=== PATIENT | female | born 1950 | race African-American/Black ===

== ENCOUNTER 2017-10-07 12:07 | Emergency (ER) | payer MEDICARE ==
[2017-10-07 12:13] VITALS: BP 125/83; PULSE 51; TEMP 97.5; BMI 26.6
[2017-10-07] MEDS ORDERED: KETOROLAC TROMETHAMINE 30 MG/1 ML VIAL IM ONE (12:35)
[2017-10-07] MEDS ORDERED: KETOROLAC TROMETHAMINE 30 MG/1 ML VIAL ONE (12:42)
--- NOTE | 2017-10-07 12:43 | PDOC ---
History of Present Illness - General Chief Complaint: Pain Stated Complaint: LEG PAIN Time Seen by Provider: 10/07/17 12:14 History Source: Patient - History of Present Illness Occurred: reports: other Lower Extremity Pain Location: right: leg Past History - Past Medical History Allergies/Adverse Reactions: Allergies Allergy/AdvReac Type Severity Reaction Status Date / Time No Known Allergies Allergy Verified 10/07/17 12:13 Home Medications: Ambulatory Orders NK [No Known Home Medication] 10/07/17 COPD: No HTN: Yes - Suicide/Smoking/Psychosocial Hx Smoking History: Current every day smoker Number of Cigarettes Smoked Daily: 20 Information on smoking cessation initiated: No Review of Systems - Review of Systems Constitutional: No: Chills, Fever Respiratory: No: Shortness of Breath Cardiac (ROS): No: Chest Pain, Palpitations Musculoskeletal: No: Joint Pain, Joint Swelling, Muscle Weakness Integumentary: No: Erythema, Rash *Physical Exam - Vital Signs Last Vital Signs Temp Pulse Resp BP Pulse Ox 97.5 F L 51 L 18 125/83 99 10/07/17 12:10 10/07/17 12:10 10/07/17 12:10 10/07/17 12:10 10/07/17 12:10 - Physical Exam General Appearance: Yes: Appropriately Dressed. No: Apparent Distress HEENT: positive: Normal Voice Neck: positive: Supple Respiratory/Chest: negative: Respiratory Distress Cardiovascular: negative: Regular Rate, S1, S2 Gastrointestinal/Abdominal: positive: Soft. negative: Tender Extremity: positive: Normal Inspection, Normal Range of Motion, Other (pedal pulses intact w/ warm skin). negative: Tender, Swelling Integumentary: positive: Dry, Warm Neurologic: positive: Fully Oriented, Alert, Normal Mood/Affect, Motor Strength 5/5 Medical Decision Making - Medical Decision Making 10/07/17 12:39 66 yo F, endorses chronic LLE pain and uses cane at baseline, here w/ RLE pain x 3 weeks, throbbing in nature, radiates to R hip, worse w/ weight bearing/ certain movements. Taking motrin w/ no relief. No swelling, redness, f/c. No CP , SOB or palpitations. No trauma. No obvious RFs for dvt/PE. Has PMD appt in am See exam Atrauamtic RLE pain x 3 weeks Possibly arthritis, no e/o infection, vascular insuff and no obvious RF for dvt/ pe Exam unremarkable -pain control in ED -dc to take tylenol and f/u with PMD as already scheduled tomorrow *DC/Admit/Observation/Transfer Diagnosis at time of Disposition: Leg pain Qualifiers: Laterality: right Qualified Code(s): M79.604 - Pain in right leg - Discharge Dispostion Disposition: HOME Condition at time of disposition: Good - Referrals Referrals: Omer Zuniga [Primary Care Provider] - - Patient Instructions Additional Instructions: Your right leg pain is unclear at this time as discussed in ED. Please follow-up with your primary care physician for further evaluation. Take Tylenol or extra strength Tylenol as needed for pain - Post Discharge Activity
== END 2017-10-07 13:01 | disposition home or self-care (01) ==
LOC: JERFT 12:07
DX: M79.604 Pain in right leg (principal); I10 Essential (primary) hypertension; R26.89 Other abnormalities of gait and mobility; Z99.89 Dependence on other enabling machines and devices
CPT/HCPCS: 99281-25

== ENCOUNTER 2018-01-02 03:02 | Emergency (ER) | payer MEDICARE ==
--- NOTE | 2018-01-02 03:10 | PDOC ---
Medical Decision Making - Medical Decision Making 01/02/18 03:10 Ms Cobb is a 67-year-old female who reports no past medical history who presents emergency department s/p mechanical fall Pt state she tripped and fell, striking her head No LOC No Amnesia No preceding chest pain, shortness of breath, palpitations No focal weakness or numbness On examination Pt has right frontal hematoma No periorbital bruising No hemotympanum No cervical spine midline tenderness to palpitations CTA b/l No abdominal tenderness to palpation Pt seen by Midlevel Provider under my direct supervision Pt interviewed and examined Ancillary studies reviewed CT demonstrates no intracranial hemorrhage Pt braced her fall by landing on her hands Xrays with degenerative changes No anticoagulant use I agree with plan as outlined by Midlevel Provider, d/c to home 01/02/18 23:56 *DC/Admit/Observation/Transfer Diagnosis at time of Disposition: Bilateral hand pain Head injury Qualifiers: Encounter type: initial encounter Qualified Code(s): S09.90XA - Unspecified injury of head, initial encounter - Discharge Dispostion Disposition: HOME - Referrals Referrals: Chip Esteban MD [Staff Physician] - Omer Zuniga [Primary Care Provider] - - Patient Instructions Printed Discharge Instructions: DI for Closed Head Injury Additional Instructions: follow up with a hand doctor / orthopedic for hand pain you may take tylenol 650 mg very 6 hours as needed for pain rest and relax as much as possible. Additional Instructions: * Please call your personal physician to report your Emergency Department visit and to report your progress, if any. * If there is no improvement in symptoms in 2 days call your physician. * Return to the Emergency Department for any worsening symptoms. - Post Discharge Activity
[2018-01-02] MEDS ORDERED: TETANUS AND DIPHTHERIA TOXOID 0.5 ML DISP.SYRIN IM ONE (03:19)
[2018-01-02 03:21] VITALS: TEMP 97.3; BMI 24.6
--- NOTE | 2018-01-02 03:24 | PDOC ---
History of Present Illness - General Chief Complaint: Head/Neck problem Stated Complaint: FALL Time Seen by Provider: 01/02/18 03:02 - History of Present Illness Initial Comments: 01/02/18 03:18 01/02/18 03:13 60 year old female s/p trip and fall on shoe at home with head injury and b/ hand pain. denies LOC, NV, dizziness. last tetanus unknown denies PMHX no current meds as per patient. 01/02/18 05:14 Past History - Past Medical History Allergies/Adverse Reactions: Allergies Allergy/AdvReac Type Severity Reaction Status Date / Time No Known Allergies Allergy Verified 10/07/17 12:13 Home Medications: Ambulatory Orders Aspirin [ASA -] 81 mg PO DAILY 01/02/18 COPD: No HTN: Yes - Suicide/Smoking/Psychosocial Hx Smoking History: Current every day smoker Number of Cigarettes Smoked Daily: 20 Review of Systems - Review of Systems Able to Perform ROS?: Yes Is the patient limited Upper Sorbian proficient: No Constitutional: No: Symptoms Reported, See HPI, Chills, Diaphoresis, Fever, Loss of Appetite, Malaise, Night Sweats, Weakness, Weight Stable, Unintentional Wgt. Loss, Unexplained wgt Loss, Other Neurological: Yes: Other (head injury) *Physical Exam - Vital Signs 01/02/18 05:13 Last Vital Signs Temp Pulse Resp BP Pulse Ox 97.3 F L 75 20 205/92 96 01/02/18 03:20 01/02/18 03:20 01/02/18 03:20 01/02/18 03:20 01/02/18 03:20 - Physical Exam General Appearance: Yes: Appropriately Dressed Respiratory/Chest: positive: Lungs Clear, Normal Breath Sounds Gastrointestinal/Abdominal: positive: Normal Bowel Sounds, Soft Musculoskeletal: positive: Normal Inspection Extremity: positive: Normal Capillary Refill, Normal Inspection, Normal Range of Motion Integumentary: positive: Normal Color, Dry, Warm Neurologic: positive: Fully Oriented, Alert, Normal Mood/Affect, Other ( hematoma and abrasion to face) Medical Decision Making - Medical Decision Making 01/02/18 05:15 repeat b/p 132/76, HRT 72. b/l hand xray negative, will d/c home *DC/Admit/Observation/Transfer Diagnosis at time of Disposition: Bilateral hand pain Head injury Qualifiers: Encounter type: initial encounter Qualified Code(s): S09.90XA - Unspecified injury of head, initial encounter - Discharge Dispostion Disposition: HOME - Referrals Referrals: Omer Zuniga [Primary Care Provider] - Chip Esteban MD [Staff Physician] - - Patient Instructions Printed Discharge Instructions: DI for Closed Head Injury Additional Instructions: follow up with a hand doctor / orthopedic for hand pain you may take tylenol 650 mg very 6 hours as needed for pain rest and relax as much as possible. Additional Instructions: * Please call your personal physician to report your Emergency Department visit and to report your progress, if any. * If there is no improvement in symptoms in 2 days call your physician. * Return to the Emergency Department for any worsening symptoms. - Post Discharge Activity
[2018-01-02] MEDS ORDERED: ACETAMINOPHEN 325 MG TABLET (FP) ONE (04:07)
[2018-01-02] MEDS ORDERED: ACETAMINOPHEN 325 MG TABLET (FP) PO ONE (04:08)
[2018-01-02 06:44] VITALS: BP 138/72; PULSE 73
== END 2018-01-02 05:39 | disposition home or self-care (01) ==
LOC: JER 03:02
PROC: 3E0234Z Introduction of Serum, Toxoid and Vaccine into Muscle, Percutaneous Approach (ICD-10-PCS; principal; 2018-01-02)
DX: M79.641 Pain in right hand (principal); M79.642 Pain in left hand; W18.09XA Striking against other object with subsequent fall, initial encounter; Y93.89 Activity, other specified; Y92.9 Unspecified place or not applicable; F17.210 Nicotine dependence, cigarettes, uncomplicated; I10 Essential (primary) hypertension
CPT/HCPCS: 70450-TC; 73130-TC-LR-FY; 73130-TC-RT-FY; 99282-25

== ENCOUNTER 2021-02-28 21:44 | Observation (INO) | payer BC, MEDICARE ==
[2021-02-28 23:01] VITALS: BMI 28.3
[2021-03-01 00:44] LABS: BASO % 0.3 % (0-2.0); EOS % 0.3 % (0-4.5); HEMATOCRIT 37.1 % (32.4-45.2); HEMOGLOBIN 12.6 GM/dL (10.7-15.3); LYMPH % 7.9 % (8-40); MEAN CELL VOLUME 88.2 fl (80-96); MEAN PLT VOLUME 8.2 fl (7.5-11.1); MONO % 4.7 % (3.8-10.2); NEUT % 86.8 % (42.8-82.8); PLATELET COUNT 227 10^3/uL (134-434); RBC 4.21 M/mm3 (3.60-5.2); RDW 16.1 % (11.6-15.6); WHITE BLOOD COUNT 12.3 K/mm3 (4.0-10.0)
[2021-03-01 01:06] LABS: CHLORIDE 115 mmol/L (98-107); SODIUM 144 mmol/L (136-145)
[2021-03-01 01:09] LABS: ALBUMIN 3.7 g/dl (3.4-5.0); ANION GAP 7 MMOL/L (8-16); BLOOD UREA NITROGEN 32.2 mg/dL (7-18); CO2 23 mmol/L (21-32); GLUCOSE,RANDOM 107 mg/dL (74-106); MAGNESIUM 2.2 mg/dL (1.8-2.4)
[2021-03-01 01:12] LABS: CREATININE 1.3 mg/dL (0.55-1.3); SGOT/AST 9 U/L (15-37); SGPT/ALT 17 U/L (13-61)
[2021-03-01 01:14] LABS: BILIRUBIN,TOTAL 0.2 mg/dL (0.2-1); TOT PROT 7.4 g/dl (6.4-8.2)
[2021-03-01 01:15] LABS: ALK PHOS 86 U/L (45-117)
[2021-03-01 02:49] LABS: EPI CELLS 17 /uL (0-25.1); HYALINE CASTS 3 /uL (0-3.1); PH,URINE 5.5 (5.0-8.0); URINE APPEARANCE CLOUDY; URINE BACTERIA >9,000 /uL (0-1359); URINE BILIRUBIN NEGATIVE (NEGATIVE); URINE COLOR YELLOW; URINE GLUCOSE (UA) NEGATIVE (NEGATIVE); URINE KETONE NEGATIVE (NEGATIVE); URINE LEUK ESTERASE 2+ (NEGATIVE); URINE NITRITE POSITIVE (NEGATIVE); URINE PROTEIN TRACE (NEGATIVE); URINE RBC 9 /uL (0-23.9); URINE UROBILINOGEN 0.2 mg/dL (0.2-1.0); URINE WBC 146 /uL (0-25.8)
[2021-03-01] MEDS ORDERED: CEFTRIAXONE 1 GM/50 ML BAG ONE (03:38)
[2021-03-01] MEDS ORDERED: SODIUM CHLORIDE 1,000 ML IV SCH (04:00)
[2021-03-01] MEDS ORDERED: LISINOPRIL 5 MG TABLET PO SCH (07:00)
[2021-03-01 09:57] LABS: HEMATOCRIT 37.8 % (32.4-45.2); HEMOGLOBIN 12.7 GM/dL (10.7-15.3); MCH 30.5 pg (25.7-33.7); MCHC 33.5 g/dl (32.0-36.0); MEAN CELL VOLUME 90.9 fl (80-96); MEAN PLT VOLUME 8.8 fl (7.5-11.1); PLATELET COUNT 264 10^3/uL (134-434); RBC 4.16 M/mm3 (3.60-5.2); RDW 16.4 % (11.6-15.6); WHITE BLOOD COUNT 9.8 K/mm3 (4.0-10.0)
[2021-03-01] MEDS ORDERED: ENOXAPARIN NA (PORCINE) 40 MG/0.4 ML DISP.SYRIN SQ SCH (10:00)
[2021-03-01 10:20] LABS: CALCIUM 9.6 mg/dL (8.5-10.1)
[2021-03-01 10:21] LABS: ALBUMIN 3.8 g/dl (3.4-5.0); BLOOD UREA NITROGEN 27.9 mg/dL (7-18); MAGNESIUM 2.5 mg/dL (1.8-2.4)
[2021-03-01 10:24] LABS: PHOSPHOROUS 3.3 mg/dL (2.5-4.9)
[2021-03-01 10:25] LABS: BILIRUBIN,TOTAL 0.3 mg/dL (0.2-1); TOT PROT 7.6 g/dl (6.4-8.2)
[2021-03-01] MEDS ORDERED: LISINOPRIL 5 MG TABLET ONE (12:06)
[2021-03-01] MEDS ORDERED: ENOXAPARIN NA (PORCINE) 40 MG/0.4 ML DISP.SYRIN SQ ONE (12:06)
[2021-03-01 17:02] VITALS: BP 148/74; PULSE 71; TEMP 97.9
[2021-03-01] MEDS ORDERED: amLODIPine BESYLATE 5 MG TABLET (FP) PO SCH (22:00)
[2021-03-02] MEDS ORDERED: CEFTRIAXONE 1 GM in DEXTROSE 5%-WATER - 50 ML IVPB SCH (10:00)
== END 2021-03-01 17:10 | disposition home or self-care (01) ==
LOC: JER 21:44 → INTOOBSV 03-01 03:01 → UNDOADMOB 03-01 03:01 → JERBED 03-01 03:01
PROVIDERS: ATTEND Nurse Practitioner Family
PROC: 3E023GC Introduction of Other Therapeutic Substance into Muscle, Percutaneous Approach (ICD-10-PCS; principal; 2021-03-01)
DX: I10 Essential (primary) hypertension (principal); R80.9 Proteinuria, unspecified; R55 Syncope and collapse; N39.0 Urinary tract infection, site not specified; Z29.9 Encounter for prophylactic measures, unspecified; F17.210 Nicotine dependence, cigarettes, uncomplicated
CPT/HCPCS: 36415; 70450-TC; 71046-TC-FY; 80053; 81003; 82550; 83735; 84100; 84443; 84484; 85025; 85027; 87086; 87186; 93005; 93010; 93306-TC; 93880-TC; 96372; 99285-25; C9803; G0378; U0003; U0005

== ENCOUNTER 2021-03-11 08:41 | Emergency (ER) | payer BC ==
[2021-03-11 08:46] VITALS: BP 126/73; PULSE 81; TEMP 97.5; BMI 27.4
[2021-03-11] MEDS ORDERED: ACETAMINOPHEN 325 MG TABLET (FP) PO ONE (09:22)
[2021-03-11] MEDS ORDERED: LIDOCAINE 5% TOPICAL PATCH TP ONE (09:22)
[2021-03-11] MEDS ORDERED: ACETAMINOPHEN 325 MG TABLET (FP) ONE (10:19)
[2021-03-11] MEDS ORDERED: LIDOCAINE 5% TOPICAL PATCH ONE (10:20)
== END 2021-03-11 11:53 | disposition home or self-care (01) ==
LOC: JERFT 08:41
DX: M54.31 Sciatica, right side (principal)
CPT/HCPCS: 72100-TC-FY; 73523-TC-FY; 73562-TC-RT-FY; 99284-25

== ENCOUNTER 2022-09-19 04:40 | Day surgery (SDC) | payer BC ==
[2022-09-15 10:21] VITALS: BMI 27.4
[2022-09-19 10:56] VITALS: TEMP 97.3
[2022-09-19 11:30] VITALS: BP 127/55; PULSE 63; RESP 20
== END 2022-09-19 11:40 | disposition home or self-care (01) ==
LOC: JASU-ENDO 04:40
PROVIDERS: ATTEND Student in an Organized Health Care Education/Training Program
PROC: 0DBL8ZX Excision of Transverse Colon, Via Natural or Artificial Opening Endoscopic, Diagnostic (ICD-10-PCS; 2022-09-19)
PROC: 0DBH8ZX Excision of Cecum, Via Natural or Artificial Opening Endoscopic, Diagnostic (ICD-10-PCS; 2022-09-19)
PROC: 0W3P8ZZ Control Bleeding in Gastrointestinal Tract, Via Natural or Artificial Opening Endoscopic (ICD-10-PCS; 2022-09-19)
PROC: 0D5P8ZZ Destruction of Rectum, Via Natural or Artificial Opening Endoscopic (ICD-10-PCS; 2022-09-19)
PROC: 0DBK8ZX Excision of Ascending Colon, Via Natural or Artificial Opening Endoscopic, Diagnostic (ICD-10-PCS; principal; 2022-09-19 10:30)
DX: D12.0 Benign neoplasm of cecum (principal); D12.2 Benign neoplasm of ascending colon; D12.3 Benign neoplasm of transverse colon; K55.21 Angiodysplasia of colon with hemorrhage; K57.30 Diverticulosis of large intestine without perforation or abscess without bleeding; I10 Essential (primary) hypertension
CPT/HCPCS: 88305-TC

== ENCOUNTER → 2023-09-27 | Day surgery (SDC) | payer OTHER | END | disposition home or self-care (01) | LOC: FMAMMOTONE 12:27 | PROC: 0HBT3ZX Excision of Right Breast, Percutaneous Approach, Diagnostic (ICD-10-PCS; principal; 2023-09-27) | DX: N60.11 Diffuse cystic mastopathy of right breast (principal); N64.89 Other specified disorders of breast; R92.1 Mammographic calcification found on diagnostic imaging of breast | CPT/HCPCS: 19081; 76098-TC-FY; 88305-TC ==

== ENCOUNTER 2024-12-19 17:05 | Inpatient (IN) | payer OTHER ==
[2024-12-19 18:49] LABS: MCHC 32.0 g/dl (32.2-35.5); MEAN CELL VOLUME 90.0 fl (79.4-94.8); MEAN PLT VOLUME 10.6 fl (9.4-12.3); RDW 18.3 % (12.4-16.6)
[2024-12-19] MEDS: SODIUM CHLORIDE 0.9% 1000 ML INFUS.BAG IV ONE (20:45)
[2024-12-19 21:24] LABS: EPI CELLS 12 /uL (0-25.1); HYALINE CASTS 2 /uL (0-3.1); URINE APPEARANCE CLOUDY; URINE BACTERIA >9,000 /uL (0-1359); URINE BILIRUBIN NEGATIVE (NEGATIVE); URINE COLOR YELLOW; URINE GLUCOSE (UA) NEGATIVE (NEGATIVE); URINE KETONE NEGATIVE (NEGATIVE); URINE LEUK ESTERASE 1+ (NEGATIVE); URINE NITRITE POSITIVE (NEGATIVE); URINE PROTEIN 1+ (NEGATIVE); URINE RBC 24 /uL (0-23.9); URINE UROBILINOGEN 0.2 mg/dL (0.2-1.0); URINE WBC 115 /uL (0-25.8)
[2024-12-19 21:39] LABS: GLUCOSE,RANDOM 106.0 mg/dL (74-106)
[2024-12-19 21:40] LABS: TOT PROT 8.1 g/dl (6.4-8.2)
[2024-12-19 21:41] LABS: CO2 25.0 mmol/L (21-32)
[2024-12-19 21:42] LABS: ALK PHOS 103.0 U/L (40-150)
[2024-12-19 21:45] LABS: CREATININE 1.28 mg/dL (0.55-1.3); SGOT/AST 18.0 U/L (5-34); SGPT/ALT 13.0 U/L (0-55)
[2024-12-19 21:47] LABS: HCV DIAGNOSTIC IN-HOUSE W/RFLX NON-REACTIVE (NONREACTIVE)
[2024-12-19 21:48] LABS: HIV INTERPRETATION NEGATIVE (NEGATIVE)
[2024-12-20] MEDS ORDERED: CEFTRIAXONE 1 GM/50 ML BAG ONE (00:19)
[2024-12-20 01:06] VITALS: BMI 26.9
[2024-12-20 07:25] LABS: ABSOLUTE IMMATURE GRANULOCYTES 0.02 x10^3/uL (0.0-0.031); BASOPHILS # 0.01 x10^3/uL (0.01-0.08); EOSINOPHIL % 6.8 % (0.7-5.8); EOSINOPHILS # 0.55 x10^3/uL (0.04-0.36); MCHC 31.7 g/dl (32.2-35.5); MEAN CELL VOLUME 89.4 fl (79.4-94.8); MEAN PLT VOLUME 10.5 fl (9.4-12.3); MONOCYTE # 0.47 x10^3/uL (0.24-0.86); MONOCYTE % 5.8 % (4.7-12.5); RDW 18.1 % (12.4-16.6)
[2024-12-20 07:59] LABS: GLUCOSE,RANDOM 93.0 mg/dL (74-106)
[2024-12-20 08:00] LABS: TOT PROT 7.3 g/dl (6.4-8.2)
[2024-12-20 08:01] LABS: CO2 24.0 mmol/L (21-32)
[2024-12-20 08:03] LABS: ALK PHOS 93.0 U/L (40-150)
[2024-12-20 08:05] LABS: SGOT/AST 16.0 U/L (5-34); SGPT/ALT 9.0 U/L (0-55)
[2024-12-20 08:06] LABS: CREATININE 1.09 mg/dL (0.55-1.3)
[2024-12-20] MEDS: ENOXAPARIN NA (PORCINE) 40 MG/0.4 ML DISP.SYRIN SQ SCH (09:26)
[2024-12-20 10:39] LABS: IRON SERUM 46.0 ug/dL (50-175)
[2024-12-20] MEDS: FAMOTIDINE 20 MG TABLET PO SCH (16:45)
[2024-12-20] MEDS: ASPIRIN 81 MG CHEWABLE TABLETS PO SCH (16:45)
[2024-12-20] MEDS: LACTATED RINGERS SOLUTION 1,000 ML/1,000 ML INFUS.BAG IV SCH (17:39)
[2024-12-20] MEDS: CEFTRIAXONE 1 GM in DEXTROSE 5%-WATER - 50 ML IVPB SCH (21:39)
[2024-12-21 07:45] LABS: MCHC 32.2 g/dl (32.2-35.5); MEAN CELL VOLUME 89.8 fl (79.4-94.8); MEAN PLT VOLUME 10.2 fl (9.4-12.3); RDW 18.1 % (12.4-16.6)
[2024-12-21 08:07] LABS: GLUCOSE,RANDOM 81.0 mg/dL (74-106)
[2024-12-21 08:08] LABS: CO2 27.0 mmol/L (21-32)
[2024-12-21 08:13] LABS: CREATININE 1.04 mg/dL (0.55-1.3)
[2024-12-21] MEDS: ACETAMINOPHEN 325 MG TABLET (FP) PO PRN (09:31)
[2024-12-21] MEDS: CLOPIDOGREL BISULFATE 75 MG TABLET (FP) PO SCH (15:44)
[2024-12-21] MEDS: SODIUM CHLORIDE 0.9%/KCL 20 MEQ/1,000 ML INFUS.BAG IV SCH (17:39)
[2024-12-21] MEDS: ROSUVASTATIN CA 40 MG TABLET PO SCH (22:27)
[2024-12-22 08:21] LABS: GLUCOSE,RANDOM 99.0 mg/dL (74-106)
[2024-12-22 08:22] LABS: CO2 25.0 mmol/L (21-32)
[2024-12-22 08:26] LABS: CREATININE 1.03 mg/dL (0.55-1.3)
[2024-12-22] MEDS: FAMOTIDINE 20 MG TABLET PO SCH (10:07)
[2024-12-22] MEDS: SODIUM CHLORIDE 500 ML IV STA (11:57)
[2024-12-22] MEDS: CEFTRIAXONE 1 GM in DEXTROSE 5%-WATER - 50 ML IVPB SCH (13:35)
[2024-12-22 15:25] VITALS: BP 152/71; PULSE 72; RESP 19; TEMP 97.7
== END 2024-12-22 16:58 | disposition home or self-care (01) | DRG 312 ==
LOC: JER 17:05 → JERBED 21:54 → J4W 12-20 01:00
PROVIDERS: ADMIT Internal Medicine; ATTEND Student in an Organized Health Care Education/Training Program
DX: I95.1 Orthostatic hypotension (principal); N39.0 Urinary tract infection, site not specified; I73.9 Peripheral vascular disease, unspecified; I10 Essential (primary) hypertension; D64.9 Anemia, unspecified; R91.1 Solitary pulmonary nodule
CPT/HCPCS: 36415; 71045-TC-FY; 80048; 80053; 81003; 82607; 82728; 82746; 83540; 83550; 83735; 84100; 84484; 85025; 85027; 86803; 87086; 87389; 93005; 93010; 93880-TC; 97116-GP; 97161-GP; 99285-25